=== PATIENT | male | born 1985 | race African-American/Black ===

== ENCOUNTER 2023-03-05 19:21 | Emergency (ER) | payer OTHER, BC, SELFPAY ==
--- NOTE | 2023-03-05 19:20 | XRR_ITS ---
PROCEDURE INFORMATION: Exam: XR Left Wrist Exam date and time: 03/05/2023 7:27 PM Age: 37 years old Clinical indication: Injury or trauma; Other: Hurt lt wrist; Blunt trauma (contusions or hematomas); Left; Additional info: Fall TECHNIQUE: Imaging protocol: Radiologic exam of the left wrist. Views: 3 or more views. COMPARISON: No relevant prior studies available. FINDINGS: Bones/joints: No evidence of acute fracture or dislocation. No erosive disease. No significant degenerative change. Soft tissues: Normal. XR/XR wrist LT min 3V* [id number] IMPRESSION: No acute bony injury.
--- NOTE | 2023-03-05 20:13 | ED_ITS ---
HPI - Extremity Injury (Upper) General: Chief Complaint: Extremity Injury, Upper Stated Complaint: Left arm/wrist injury Time Seen by Provider: 03/05/23 20:12 History of Present Illness: 37-year-old male patient was holding onto a box when he lost his footing causing him to trip and fall. Patient did not let go of what he was holding onto and somehow hurt his left wrist. Patient denied any chronic medical problems. Patient appears nontoxic. Patient appears in mild to moderate pain. Patient has guarded movement of his left wrist. Review of Systems General: Reports: 10 or more systems reviewed and unremarkable except in HPI and below Musc: Reports: joint pain (Left wrist) Physical Exam Const: COMMON NORMALS: alert HENMT: COMMON NORMALS: normocephalic HEAD & SCALP: normocephalic Neck/C-Spine: COMMON NORMALS: full ROM Resp: COMMON NORMALS: normal respiratory effort Cardio: COMMON NORMALS: regular rate and regular rhythm RATE: regular rate RHYTHM: regular rhythm : COMMON NORMALS: Yes no CVA tenderness BLADDER/KIDNEY EXAM: Yes no CVA tenderness Back/Pelvis: COMMON NORMALS: no CVA tenderness Extremity: LEFT UPPER EXTREMITY: Yes wrist (No swelling, radial tenderness, guarded movement due to pain) Left wrist: Yes inspection, Yes palpation and Yes ROM Neuro: SENSORIUM/ORIENTATION: Yes alert Skin: COMMON NORMALS: turgor normal GENERAL SKIN EXAM: turgor normal Course Vital Signs: Vital signs: Vital Signs Temperature 97.9 F 03/05/23 20:14 Pulse Rate 68 03/05/23 20:14 Respiratory Rate 18 03/05/23 20:14 Blood Pressure 181/89 03/05/23 20:14 Pulse Oximetry 98 03/05/23 20:14 Oxygen Delivery Me thod Room Air 03/05/23 20:14 MDM - Extremity Injury (Upper) Medical Decision Making Patient comes in for evaluation of injury to the left wrist that occurred earlier today. On exam there is no sign of obvious deformity or significant swelling. Patient has radial wrist joint line tenderness. Pulses and sensation are intact. Differential diagnosis includes fracture, sprain, neuralgia. X-ray was negative for any bony abnormality. Reviewed exam with patient with recommendations for treatment and follow-up. Patient reported understanding and agreed to plan. Lab Data Radiology Impressions Wrist X-Ray 08/21/23 19:20 IMPRESSION: No acute bony injury. Discharge Plan Discharge Patient Disposition: Home Clinical Impression: Left wrist sprain Qualifiers: Encounter type: initial encounter Qualified Code(s): S63.502A - Unspecified sprain of left wrist, initial encounter Condition: Stable Prescriptions: New ibuprofen 600 mg tablet 600 mg PO Q6H PRN (Reason: pain) Qty: 20 0RF Discharge Orders: Discharge ED (Routine); Ordered 03/05/23 Ordered By: Mc Tripp Discharge Diet: Usual diet Discharge Activity: Increase activity as tolerated Patient Instructions: Wrist Sprain (ED) Activity Restrictions/Additional Instructions: Activity as tolerated. Use elastic bandage for comfort and support. Use ice packs for further pain relief. Use acetaminophen and/or ibuprofen as needed for pain. Follow-up with primary care as needed. Return to ED for new concerns. Coding Level of Care Code ED Quality Review Trainer for Carline Spear
[2023-03-05 20:14] VITALS: BP 181/89; PULSE 68; RESP 18; TEMP 36.6; O2SAT 98; BMI 27.8
[2023-03-05] MEDS: ibuprofen 600 mg Tablet PO (20:26)
== END 2023-03-05 20:29 | disposition home or self-care (01) ==
PROVIDERS: Emergency Provider Nurse Practitioner Family
DX: S63.502A Unspecified sprain of left wrist, initial encounter (principal); W01.0XXA Fall on same level from slipping, tripping and stumbling without subsequent striking against object, initial encounter
CPT/HCPCS: 73110; 99283